=== PATIENT | male | born 1985 | race Caucasian/White ===

== ENCOUNTER 2018-01-12 12:09 | Emergency (ER) | payer MEDICAID ==
[2018-01-12 12:50] LABS: BASOPHILS 0.4 % (0-2); EOSINOPHILS 0.9 % (0-7); HEMATOCRIT 47.8 % (42.0-54.0); HEMOGLOBIN 16.9 g/dL (13.5-17.5); IMMATURE GRANULOCYTES 0.3 % (0-5); LYMPHOCYTES 7.7 % (15-50); MCH 31.1 pg (26.0-34.0); MCHC 35.4 g/dL (31.0-37.0); MCV 87.9 fL (80.0-100.0); MEAN PLATELET VOLUME 9.6 fL (7.4-10.4); MONOCYTES 5.8 % (2-11); NEUTROPHILS 84.9 % (40-80); PLATELET COUNT 276 10x3/uL (130-400); RBC 5.44 10x6/uL (4.20-6.10); RDW 13.5 % (11.5-14.5); WBC 15.9 10x3/uL (4.8-10.8)
[2018-01-12 13:04] LABS: ALBUMIN 4.2 g/dL (3.4-5.0); ALKALINE PHOSPHATASE 82 U/L (46-116); ALT (SGPT) 84 U/L (10-68); AMYLASE - SERUM 56 U/L (25-115); CALC OSMOLALITY 273 mosm/kg (275-300); CALCIUM 9.7 mg/dL (8.5-10.1); CARBON DIOXIDE 33.1 mmol/L (21.0-32.0); CHLORIDE - SERUM 103 mmol/L (98-107); CREATININE - SERUM 1.2 mg/dL (0.6-1.3); GLUCOSE 151 mg/dL (74-106); LIPASE 130 U/L (73-393); POTASSIUM - SERUM 3.3 mmol/L (3.5-5.1); PROTEIN - SERUM 7.9 g/dL (6.4-8.2); SODIUM 135 mmol/L (136-145); UREA NITROGEN 15 mg/dL (7-18); eGFR NON AFRICAN AMERICAN 75 mL/min (90-120)
[2018-01-12 13:42] LABS: APPEARANCE CLOUDY (CLEAR); COLOR YELLOW (YELLOW); GLUCOSE 50 mg/dL (NEGATIVE); KETONE LARGE mg/dL (NEGATIVE); NITRITE NEGATIVE (NEGATIVE); PROTEIN NEGATIVE (NEGATIVE); SPECIFIC GRAVITY 1.005 (1.005-1.020)
[2018-01-12 13:43] LABS: BILIRUBIN NEGATIVE (NEGATIVE)
[2018-01-14 11:06] VITALS: BMI 20.3
== END 2018-01-12 15:36 | disposition home or self-care (01) ==
LOC: D.ER 12:09
PROVIDERS: Emergency Medicine
DX: R10.9 Unspecified abdominal pain (principal); F17.200 Nicotine dependence, unspecified, uncomplicated

== ENCOUNTER 2018-01-13 15:05 | Day surgery (SDC) | payer MEDICAID ==
[~2018-01-13] VITALS: Ht 182.9 cm; Wt 68.0 kg
--- NOTE | ~2018-01-13 | HP ---
PATIENT: FEDE BUCHANAN MEDICAL RECORD: [id number] ACCOUNT: [id number] LOCATION:[facility] : 89 ADMISSION DATE: 01/13/18 HISTORY AND PHYSICAL EXAMINATION CHIEF COMPLAINT: Pain. HISTORY OF PRESENT ILLNESS: The patient presented to the Emergency Room last evening with abdominal pain. He underwent a CT scan. I have personally reviewed the CT images. I have personally reviewed the CT report. It was read out as equivocal for acute appendicitis. The patient saw his primary care physician. His primary care physician was very concerned, asked him to come back to the Emergency Room where he was reevaluated. I do not think it is necessary to rescan the patient. I am going to proceed with laparoscopic appendectomy. Due to the late hour and the fact that the OR staff is still working on the days OR schedule, I am going to plan to perform a laparoscopic appendectomy in the morning. Additionally, the patient just ate before arrival to the hospital, which would delay his operation for several hours until rather several hours into the night. He does have localized peritonitis to percussion. Symptoms are of recent onset. They are increasing in intensity. The patient is very anxious. Palpation aggravates. Nothing alleviates. He describes his symptoms as severe. He does not have anorexia. Some of the physical examination findings are listed in this history of present illness. This is a history and physical addendum. For the typed portion of the history and physical, please see the chart. This would include the past medical and surgical history, current medications, allergies, social history as well as family history. REVIEW OF SYSTEMS: Currently, no nausea, no vomiting, no fever, no chills. Positive for abdominal pain. Positive for anxiety. The review of systems is negative other than as is described above. PHYSICAL EXAMINATION: GENERAL: The patient does not appear acutely ill. He does not appear chronically ill. VITAL SIGNS: Reviewed. EARS: External ears appear normal. EYES: Extraocular movements are intact. NECK: Trachea is midline. CHEST: No intercostal retractions. PULMONARY: Nonlabored, no stridor. ABDOMEN: Right lower quadrant tenderness. There is a Rovsing sign. There is peritonitis to percussion and cough. No Marquez sign. EXTREMITIES: No peripheral cyanosis. INTEGUMENT: No rash or ulceration. PSYCHIATRIC: Anxious affect. NEUROLOGIC: Nonfocal, no lethargy. The patient answers questions appropriately and moves all extremities well. BACK: No thoracic kyphosis. LYMPHATICS: No lymphangitic streaking of the exposed extremities. IMPRESSION: Acute appendicitis, early with localized peritonitis. HISTORY AND PHYSICAL [id number] FEDE BUCHANAN PLAN: Will be IV narcotic analgesia. IV antibiotics. N.p.o. after midnight. Laparoscopic appendectomy. The risks, possible complications, and alternatives to procedure were discussed with the patient. He elects to proceed. TRANSINT:[id number] Voice Confirmation ID: [id number] DOCUMENT ID: [id number] PASCALE QUINONEZ MD at 1158 CC: [id number] DICTATION DATE: 01/14/1825 EMISSIONS TESTING AND REPAIR TECHNICIAN: 01/14/18 0947 [facility] 01/14/[address] [address]
--- NOTE | ~2018-01-13 | OP ---
PATIENT NAME: FEDE BUCHANAN MEDICAL RECORD: [id number] :89 LOCATION:[facility] ADMISSION DATE: SURGEON: PASCALE QUINONEZ MD DATE OF OPERATION: 01/14/2018 PREOPERATIVE DIAGNOSIS: Acute appendicitis with localized peritonitis. POSTOPERATIVE DIAGNOSIS: Acute appendicitis with localized peritonitis with no evidence of abscess, gangrene, or perforation. PROCEDURE: Laparoscopic appendectomy. SURGEON: Pascale Quinonez MD EDUCATIONAL ADMINISTRATOR: None. BLOOD LOSS: Minimal. ANESTHESIA: General. COMPLICATIONS: None. The risks, possible complications, and alternatives to the procedure were discussed with the patient. He elects to proceed. OPERATIVE COURSE: The patient was conveyed to the operating room electively on 01/14/2018. General anesthesia was induced by the anesthesia staff. The abdomen was sterilely prepped and draped. A small skin cherri was accomplished in the left upper quadrant. A Veress needle was inserted through the skin cherri into the peritoneal cavity. CO2 insufflation was begun. Once a sufficient pneumoperitoneum had been achieved, a 5-mm trocar was inserted through an incision in the left lower quadrant. Under direct internal vision utilizing a television camera, a 12-mm trocar was inserted through an incision at the umbilicus. Another 5-mm trocar was inserted through an incision in the right groin. During insertion of the Veress needle and all trocars, there appeared to have been no injury to the bowels, any intraperitoneal or retroperitoneal structures. An abdominal survey was undertaken. I identified the appendix. It was turgid and inflamed. A window was created in the mesoappendix. I took down the mesoappendix with the EnSeal device. I then stapled across the tip of the cecum with the Endo-ZULAY type stapler utilizing a blue load. I then removed the appendix through a bag retrieval device. The 12-mm trocar was replaced and the abdomen reinsufflated. I irrigated and aspirated in the right lower quadrant. There was no bleeding even at low pressure of 8. The Julio-Tonya suture closure device and 0 Vicryl suture was used to close the fascia at the umbilicus. The trocars were removed and the abdomen desufflated. The incision at the umbilicus was closed with interrupted 4-0 Vicryl Rapide sutures. The other 2 trocar site incisions were closed with interrupted intracuticular 3-0 Vicryl. Benzoin and Steri-Strips were applied. The patient was then extubated and conveyed to the post-anesthesia care unit OPERATIVE REPORT [id number] FEDE BUCHANAN where he was in stable condition. He will be dismissed home on hydrocodone for pain. I will see him in the office in 2-3 weeks. TRANSINT:[id number] Voice Confirmation ID: [id number] DOCUMENT ID: [id number] PASCALE QUINONEZ MD at 1158 CC: YESENIA OSMAN DO and TIMOTHY OSMAN MD [id number] DICTATION DATE: 01/14/18 0931 HYPNOTHERAPIST: 01/14/18 1201 [facility] 01/14/18 [id number] [place] [address]
[2018-01-13 15:38] LABS: BASOPHILS 1.1 % (0-2); EOSINOPHILS 2.9 % (0-7); HEMATOCRIT 44.1 % (42.0-54.0); HEMOGLOBIN 15.1 g/dL (13.5-17.5); IMMATURE GRANULOCYTES 0.1 % (0-5); LYMPHOCYTES 34.9 % (15-50); MCH 30.6 pg (26.0-34.0); MCHC 34.2 g/dL (31.0-37.0); MCV 89.5 fL (80.0-100.0); MEAN PLATELET VOLUME 9.6 fL (7.4-10.4); PLATELET COUNT 242 10x3/uL (130-400); RBC 4.93 10x6/uL (4.20-6.10); RDW 13.3 % (11.5-14.5)
[2018-01-13 15:42] LABS: WBC 7.9 10x3/uL (4.8-10.8)
[2018-01-13 15:52] LABS: INR 0.97 (0.85-1.17); PROTIME 12.5 SECONDS (11.6-15.0)
[2018-01-13 15:53] LABS: APTT 29.6 SECONDS (22.8-39.4)
[2018-01-13 15:54] LABS: ALBUMIN 3.7 g/dL (3.4-5.0); ALKALINE PHOSPHATASE 65 U/L (46-116); ALT (SGPT) 69 U/L (10-68); BILIRUBIN - TOTAL 0.29 mg/dL (0.2-1.3); CALCIUM 8.8 mg/dL (8.5-10.1); CARBON DIOXIDE 29.7 mmol/L (21.0-32.0); CHLORIDE - SERUM 105 mmol/L (98-107); CREATININE - SERUM 0.9 mg/dL (0.6-1.3); POTASSIUM - SERUM 3.7 mmol/L (3.5-5.1); PROTEIN - SERUM 7.2 g/dL (6.4-8.2); SODIUM 142 mmol/L (136-145); eGFR NON AFRICAN AMERICAN > 90 mL/min (90-120)
[2018-01-13 15:55] LABS: CALC OSMOLALITY 280 mosm/kg (275-300); GLUCOSE 87 mg/dL (74-106); UREA NITROGEN 10 mg/dL (7-18)
[2018-01-13 17:25] VITALS: BP 110/69; BMI 20.4
[2018-01-13 20:02] VITALS: BP 118/71
[2018-01-14] VITALS (10 sets, daily range): BP systolic 94–136; BP diastolic 62–81; Ht 182.9 cm; Wt 68.0 kg
[2018-01-14 06:39] LABS: BASOPHILS 0.9 % (0-2); EOSINOPHILS 4.7 % (0-7); HEMATOCRIT 41.3 % (42.0-54.0); HEMOGLOBIN 13.8 g/dL (13.5-17.5); IMMATURE GRANULOCYTES 0.1 % (0-5); LYMPHOCYTES 41.4 % (15-50); MCH 30.1 pg (26.0-34.0); MCHC 33.4 g/dL (31.0-37.0); MEAN PLATELET VOLUME 10.1 fL (7.4-10.4); MONOCYTES 6.7 % (2-11); NEUTROPHILS 46.2 % (40-80); PLATELET COUNT 246 10x3/uL (130-400); RBC 4.59 10x6/uL (4.20-6.10); RDW 13.5 % (11.5-14.5); WBC 7.4 10x3/uL (4.8-10.8)
[2018-01-14 07:20] LABS: ALBUMIN 2.8 g/dL (3.4-5.0); ALKALINE PHOSPHATASE 53 U/L (46-116); ALT (SGPT) 63 U/L (10-68); BILIRUBIN - TOTAL 0.15 mg/dL (0.2-1.3); CALC OSMOLALITY 282 mosm/kg (275-300); CALCIUM 8.1 mg/dL (8.5-10.1); CARBON DIOXIDE 29.4 mmol/L (21.0-32.0); CHLORIDE - SERUM 107 mmol/L (98-107); GLUCOSE 102 mg/dL (74-106); MAGNESIUM - SERUM 2.1 mg/dL (1.8-2.4); PHOSPHOROUS 3.4 mg/dL (2.5-4.9); POTASSIUM - SERUM 4.2 mmol/L (3.5-5.1); PROTEIN - SERUM 5.9 g/dL (6.4-8.2); SODIUM 143 mmol/L (136-145); UREA NITROGEN 8 mg/dL (7-18); eGFR NON AFRICAN AMERICAN > 90 mL/min (90-120)
[2018-01-14] MEDS ORDERED: HYDROCODON-ACE1 EAC7 PO (11:44)
== END 2018-01-14 14:15 | disposition home or self-care (01) ==
LOC: OBSVTIME → D.ER 15:05 → EDSTATUS 16:00 → D.EDHOLD 16:09 → D.ER 16:09 → D.EDHOLD 16:09 → OBSVTIME 17:00 → D.MS 17:10 → D.EDHOLD 17:10 → D.MS 01-14 14:15 → D.ER 01-14 14:15 → D.MS 01-14 14:15
PROVIDERS: Family Medicine; Surgery
DX: K35.3 Acute appendicitis with localized peritonitis (principal); F17.200 Nicotine dependence, unspecified, uncomplicated; Z01.812 Encounter for preprocedural laboratory examination